=== PATIENT | male | born 1995 | race Caucasian/White ===

== ENCOUNTER 2017-09-16 12:57 | Emergency (ER) | payer OTHER ==
--- NOTE | 2017-09-16 13:41 | EDPHY ---
H & P Stated Complaint: CELLULITIS L BICEP AREA/STABBED ARM 1 WK AGOWITH TOOL Time Seen by Provider: 09/16/17 13:41 HPI/ROS: CHIEF COMPLAINT: Left arm cellulitis HISTORY OF PRESENT ILLNESS: The patient presents to the ED with a small area of erythema to the dorsal aspect of his left elbow. Patient we inadvertently sustained a puncture wound on Wednesday. He is developed erythema since that time. He denies any associated numbness or weakness. He has no complaints of painful passive or active range of motion. His tetanus shot is up-to-date. REVIEW OF SYSTEMS: A comprehensive 10 point review of systems is otherwise negative aside from elements mentioned in the history of present illness. Source: Patient Exam Limitations: No limitations - Personal History Current Tetanus Diphtheria and Acellular Pertussis (TDAP): Yes - Medical/Surgical History Hx Asthma: No Hx Chronic Respiratory Disease: No Hx Diabetes: No Hx Cardiac Disease: No Hx Renal Disease: No Hx Cirrhosis: No Hx Alcoholism: No Hx HIV/AIDS: No Hx Splenectomy or Spleen Trauma: No Other PMH: PMH: PSH: Nose surg. - Social History Smoking Status: Never smoked - Physical Exam Exam: General Appearance: Alert, no distress Eyes: Pupils equal and round no pallor or injection ENT, Mouth: Mucous membranes moist Respiratory: There are no retractions, lungs are clear to auscultation Cardiovascular: Regular rate and rhythm Gastrointestinal: Abdomen is soft and nontender, no masses, bowel sounds normal Neurological: Intact sensation and motor function noted in the left upper extremity Skin: Small puncture wound noted to the medial aspect of the left biceps muscle , area of surrounding cellulitis noted to the dorsal aspect of the elbow Musculoskeletal: Normal range of motion noted throughout the left upper extremity without clinical evidence of septic arthritis Extremities: symmetrical, full range of motion Constitutional: Initial Vital Signs Temperature (C) 36.6 C 09/16/17 13:01 Heart Rate 67 09/16/17 13:01 Respiratory Rate 17 09/16/17 13:01 Blood Pressure 139/58 H 09/16/17 13:01 O2 Sat (%) 95 09/16/17 13:01 O2 Delivery Mode Room Air Allergies/Adverse Reactions: No Known Allergies Allergy (Verified 09/16/17 13:01) Home Medications: Medication Instructions Recorded NK [No Known Home Meds] 09/16/17 Medical Decision Making ED Course/Re-evaluation: The patient presents to the emergency department with cellulitis which is developed after puncture wound. The patient has no clinical evidence of a septic arthritis or neurovascular compromise. The patient will be started on Keflex and advised to take the medication 4 times a day for the next 10 days. The patient should return to the ED for any progressive symptoms of fever, increasing pain, lymphangitis or lymphadenopathy. Departure - Departure Disposition: Home, Routine, Self-Care Clinical Impression: Cellulitis of left arm Condition: Good Instructions: Cellulitis (ED) Additional Instructions: 1. Take antibiotics as prescribed for next 10 days. 2. Return to the ED for markedly worsening redness, fever, painful joints, armpit pain or other concerns as this may be the sign of a worsening infection requiring more aggressive therapy. Referrals: PAOLA Padron,. [Clinic] - As per Instructions
[2017-09-16 14:05] VITALS: BP 130/60
== END 2017-09-16 13:58 | disposition home or self-care (01) ==
DX: L03.114 Cellulitis of left upper limb (principal)